=== PATIENT | male | born 1990 | race Caucasian/White ===

== ENCOUNTER 2017-11-11 10:28 | Emergency (ER) | payer OTHER ==
--- NOTE | 2017-11-11 10:54 | ER Document Report ---
ED Medical Screen (RME) - General Chief Complaint: Anxiety Stated Complaint: POSSIBLE ANXIETY Time Seen by Provider: 11/11/17 10:51 Mode of Arrival: Wheelchair Information source: Patient TRAVEL OUTSIDE OF THE [place] IN LAST 30 DAYS: No - HPI Patient complains to provider of: sob, paresthesias Onset: Yesterday - pt seen at [facility] yesterday for similar symptoms -- sob and paresthesias -- they returned today on ride to [facility]. Denies CP Physical Exam - Vital signs Vitals: Temp Pulse Resp BP Pulse Ox 98.1 F 85 16 125/64 100 11/11/17 10:35 11/11/17 10:35 11/11/17 10:35 11/11/17 10:35 11/11/17 10:35 Course - Vital Signs Vital signs: Temp Pulse Resp BP Pulse Ox 98.1 F 85 16 125/64 100 11/11/17 10:35 11/11/17 10:35 11/11/17 10:35 11/11/17 10:35 11/11/17 10:35 Doctor's Discharge - Discharge Instructions: Anxiety ([facility])
[2017-11-11 11:26] LABS: ABSOLUTE EOSINOPHILS # (AUTO) 0.2 10^3/uL (0.0-0.6); ABSOLUTE LYMPHOCYTES (AUTO) 2.3 10^3/uL (0.5-4.7); ABSOLUTE MONOCYTES (AUTO) 0.5 10^3/uL (0.1-1.4); ABSOLUTE NEUT (AUTO) 5.1 10^3/uL (1.7-8.2); BASOPHILS % (AUTO) 0.5 % (0-2); EOSINOPHILS % (AUTO) 1.9 % (0-6); HEMATOCRIT 49.2 % (37.9-51.0); HEMOGLOBIN 17.1 g/dL (13.5-17.0); LYMPHOCYTES % (AUTO) 28.3 % (13-45); MEAN CORPUSCULAR HEMOGLOBIN 29.3 pg (27.0-33.4); MEAN CORPUSCULAR HGB CONC 34.8 g/dL (32.0-36.0); MEAN CORPUSCULAR VOLUME 84 fl (80-97); MONOCYTES % (AUTO) 5.9 % (3-13); PLATELET COUNT 363 10^3/uL (150-450); RED BLOOD COUNT 5.85 10^6/uL (4.35-5.55); SEGMENTED NEUTROPHILS % (AUTO) 63.4 % (42-78); TOTAL CELLS COUNTED % (AUTO) 100 %
--- NOTE | 2017-11-11 11:47 | RADIOLOGY REPORT (SQ) ---
EXAM DESCRIPTION: CHEST 2 VIEWS COMPLETED DATE/TIME: 11/11/2017 11:41 am REASON FOR STUDY: sob COMPARISON: None. EXAM PARAMETERS: NUMBER OF VIEWS: two views TECHNIQUE: Digital Frontal and Lateral radiographic views of the chest acquired. RADIATION DOSE: NA LIMITATIONS: none FINDINGS: LUNGS AND PLEURA: No opacities, masses or pneumothorax. No pleural effusion. MEDIASTINUM AND HILAR STRUCTURES: No masses or contour abnormalities. HEART AND VASCULAR STRUCTURES: Heart normal size. No evidence for failure. BONES: No acute findings. HARDWARE: None in the chest. OTHER: No other significant finding. IMPRESSION: NO ACUTE RADIOGRAPHIC FINDING IN THE CHEST. TECHNICAL DOCUMENTATION: JOB ID: [id number] [employer]- All Rights Reserved Reading location - IP/workstation name: [email or web address]
[2017-11-11 12:01] LABS: ALANINE AMINOTRANSFERASE 96 U/L (21-72); ALKALINE PHOSPHATASE 64 U/L (38-126); ANION GAP 19 (5-19); ASPARTATE AMINO TRANSFERASE 43 U/L (17-59); BILIRUBIN,DIRECT 0.3 mg/dL (0.0-0.4); BILIRUBIN,TOTAL 0.7 mg/dL (0.2-1.3); BLOOD UREA NITROGEN 12 mg/dL (7-20); CALCIUM 10.5 mg/dL (8.4-10.2); CARBON DIOXIDE 21 mmol/L (22-30); CHLORIDE 104 mmol/L (98-107); GLUCOSE 101 mg/dL (75-110); POTASSIUM 4.2 mmol/L (3.6-5.0); SODIUM 143.6 mmol/L (137-145); TOTAL PROTEIN 8.5 g/dL (6.3-8.2)
--- NOTE | 2017-11-11 12:18 | ER Document Report ---
ED General - General Chief Complaint: Anxiety Stated Complaint: POSSIBLE ANXIETY Time Seen by Provider: 11/11/17 10:51 Mode of Arrival: Wheelchair Information source: Patient TRAVEL OUTSIDE OF THE [place] IN LAST 30 DAYS: No - HPI Onset: Yesterday - RECURRENT THIS A.M. Onset/Duration: Sudden Quality of pain: Cramping Severity: Moderate Associated symptoms: Shortness of breath, Other - PARESTHESIAS. denies: Chest pain Exacerbated by: Denies Relieved by: Denies - SELF-LIMITING, RESOLVES W/ TIME Similar symptoms previously: Yes - FEW MONTHS, BECOMING MORE FREQUENT Recently seen / treated by doctor: Yes - [facility] [place] Notes: Patient states he has been told he is being referred to a civilian neurologist here in [place]. Also, he states his primary care is working on setting up a sleep lab study. - Related Data Allergies/Adverse Reactions: No Known Allergies Allergy (Verified 11/11/17 10:57) Past Medical History - General Information source: Patient - Social History Smoking Status: Never Smoker Cigarette use (# per day): No Chew tobacco use (# tins/day): Yes Frequency of alcohol use: Rare Drug Abuse: None Lives with: Spouse/Significant other Family History: Reviewed & Not Pertinent Patient has suicidal ideation: No Patient has homicidal ideation: No - Past Medical History Cardiac Medical History: Reports: None Pulmonary Medical History: Reports: None EENT Medical History: Reports: None Neurological Medical History: Reports: None Endocrine Medical History: Reports: None Renal/ Medical History: Reports: None. Denies: Hx Peritoneal Dialysis Malignancy Medical History: Reports None GI Medical History: Reports: None Musculoskeletal Medical History: Reports None Psychiatric Medical History: Reports: Hx Anxiety, Hx Post Traumatic Stress Disorder Traumatic Medical History: Reports: Hx Traumatic Brain Injury Review of Systems - Review of Systems Constitutional: No symptoms reported EENT: No symptoms reported Cardiovascular: See HPI Respiratory: See HPI Gastrointestinal: Nausea Genitourinary: No symptoms reported Musculoskeletal: No symptoms reported Skin: No symptoms reported Neurological/Psychological: See HPI Physical Exam - Vital signs Vitals: Temp Pulse Resp BP Pulse Ox 98.1 F 85 16 125/64 100 11/11/17 10:35 11/11/17 10:35 11/11/17 10:35 11/11/17 10:35 11/11/17 10:35 Interpretation: Normal. No: Hypotensive, Tachycardic, Hypoxic, Tachypneic, Febrile - General General appearance: Appears well, Alert In distress: None - HEENT Head: Normocephalic Eyes: Normal Conjunctiva: Normal Ears: Normal Nasal: Normal Mouth/Lips: Normal Mucous membranes: Normal, Moist Pharynx: Normal Neck: Normal - Respiratory Respiratory status: No respiratory distress - Cardiovascular Rhythm: Regular - Abdominal Inspection: Normal Distension: No distension - Extremities General upper extremity: Normal inspection General lower extremity: Normal inspection. No: Tender, Edema - Neurological Neuro grossly intact: Yes Cognition: Normal Orientation: AAOx4 - Psychological Associated symptoms: Normal affect, Normal mood - Skin Skin Temperature: Warm Skin Moisture: Dry Skin Color: Normal Skin Turgor: Elastic Course - Vital Signs Vital signs: Temp Pulse Resp BP Pulse Ox 98.1 F 85 16 125/64 100 11/11/17 10:35 11/11/17 10:35 11/11/17 10:35 11/11/17 10:35 11/11/17 10:35 - Laboratory Result Diagrams: 11/11/17 11:08 11/11/17 11:08 Laboratory results interpreted by me: 11/11/17 11/11/17 11:08 11:08 RBC 5.85 H Hgb 17.1 H Carbon Dioxide 21 L Calcium 10.5 H ALT 96 H Total Protein 8.5 H - Diagnostic Test Radiology reviewed: Image reviewed, Reports reviewed - EKG Interpretation by Hi EKG shows normal: Sinus rhythm, [place], Intervals, QRS Complexes, ST-T Waves Rate: Normal Rhythm: NSR Discharge - Discharge Clinical Impression: Hyperventilation, Anxiety, Polycythemia Condition: Stable Disposition: HOME, SELF-CARE Instructions: Anxiety ([facility]), Hyperventilation ([facility]) Additional Instructions: YOUR WORK-UP TODAY IN THE E.R. RAISES THE SUSPICION THAT YOU PROBABLY HAVE SLEEP APNEA. YOU NEED TO FOLLOW UP WITH YOUR PRIMARY CARE PROVIDER AND/OR NEUROLOGIST SOON POSSIBLE, YOU NEED TO HAVE A SLEEP STUDY DONE. TAKE BUSPAR DIRECTED TO AID IN ANXIETY CONTROL. FOLLOW UP WITH YOUR PRIMARY CARE PROVIDER SCHEDULED. RETURN TO E.R. IF YOU GET WORSE. Prescriptions: Buspirone HCl [Buspar 5 mg Tablet] 1 tab PO ASDIR PRN #30 tab PRN Reason:
[2017-11-11 13:26] VITALS: BP 133/70
--- NOTE | 2017-11-12 00:08 | EKG REPORT ---
SEVERITY:- NORMAL ECG - SINUS RHYTHM : Confirmed by: Rakel Wright MD 12-Nov-2017 00:07:22
== END 2017-11-11 13:25 | disposition home or self-care (01) ==
LOC: ER 10:28
DX: F41.9 Anxiety disorder, unspecified (principal); D75.1 Secondary polycythemia; R06.02 Shortness of breath; R20.2 Paresthesia of skin; Z72.0 Tobacco use; R11.0 Nausea
CPT/HCPCS: 71046; 80053; 85025; 93005; 93010; 99284